=== PATIENT | female | born 1955 | race African-American/Black ===

== ENCOUNTER 2017-06-01 14:45 | Observation (INO) ==
[2017-06-01] MEDS ORDERED: FUROSEMIDE 40 MG/4 ML VIAL IV STA (15:33)
[2017-06-01] MEDS ORDERED: ONDANSETRON 4 MG/2 ML VIAL IV STA (15:33)
[2017-06-01] MEDS ORDERED: ONDANSETRON 4 MG/2 ML VIAL ONE (16:08)
[2017-06-01] MEDS ORDERED: FUROSEMIDE 40 MG/4 ML VIAL ONE (16:08)
[2017-06-01 16:43] LABS: Basophils % 0.7 % (0.0-0.8); Eosinophils # 0.4 10*3/uL (0.0-0.87); Hematocrit 30.3 VOL% (35.7-47.0); Hemoglobin 10.5 GM/DL (12.0-16.0); Lymphocytes # 1.7 10*3/uL (1.4-4.0); Lymphocytes % 37.8 % (21.3-54.2); Mean Corpuscular HGB Conc 34.7 GM/DL (32-36); Mean Corpuscular Hemoglobin 32 PG (27-34); Mean Platelet Volume 11.1 FL (9.6-12.0); Monocytes # 0.6 10*3/uL (0.11-0.8); Monocytes % 13.1 % (1.7-12.7); Neutrophils # 1.7 10*3/uL (1.4-7.4); Neutrophils % 39.4 % (38.7-73.9); Red Blood Count 3.33 MC/CUMM (3.8-5.5); White Blood Count 4.4 T/CUMM (4-12)
[2017-06-01 16:46] LABS: Platelet Count 60 T/CUMM (130-400)
[2017-06-01 16:55] LABS: INR 1.1; PT Patient Result 11.3 SECS; Partial Thromboplastin Time 22.7 SECS (0-40)
[2017-06-01 17:03] LABS: Platelet Estimate Decreased
[2017-06-01 17:22] LABS: Albumin 2.4 G/DL (3.4-5.0); Bilirubin,Total 0.9 MG/DL (0.2-1.0); Calcium 8.2 MG/DL (8.5-10.1); Osmolality,Calculated 286.8 MOS/KG (273-304); Potassium 3.6 MMOL/L (3.5-5.1); Total Protein 5.4 G/DL (6.4-8.3)
[2017-06-01 17:34] LABS: Apearance,Urine CLEAR (Clear); Bacteria,Urine Occasional /HPF (Few); Bilirubin,Urine Negative (Negative); Blood, Urine Moderate mg/dL (Negative); Glucose,Urine (UA) Negative (Negative); Ketones,Urine Negative (Negative); Mucus,Urine Moderate /LPF (Occasional); Nitrite,Urine Negative (Negative); Protein,Urine 100 MG/DL; RBC,Urine 11 /HPF (0-4); Squamous Epithelial Cell,Urine Occasional /HPF (0-10); Urine Color Yellow (Yellow); Urine Specific Gravity 1.008 (1.001-1.035); Urine Urobilinogen < 2.0 EU/DL (0.2-1.0); WBC,Urine 3 /HPF (0-6)
[2017-06-01 17:40] LABS: Barbiturates Screen,Urine Negative (Negative); Benzodiazepines Screen,Urine Negative (Negative); Cannabinoid Screen,Urine Positive (Negative); Opiate Screen,Urine Negative (Negative); Phencyclidine Screen,Urine Negative (Negative)
[2017-06-01] MEDS ORDERED: MORPHINE 2 MG/1 ML SYRINGE IV PRN (18:43)
[2017-06-01] MEDS ORDERED: DEXTROSE 50% 25 GM/50 ML VIAL IV PRN (19:00)
[2017-06-01] MEDS ORDERED: GLUCAGON 1 MG VIAL IM PRN (19:00)
[2017-06-02] MEDS: ONDANSETRON 4 MG/2 ML VIAL IV PRN ×3 (00:01→16:08)
[2017-06-02] MEDS: HYDROmorphone 2 MG/1 ML VIAL IV PRN ×3 (00:02→16:01)
[2017-06-02 04:01] LABS: Basophils % 0.7 % (0.0-0.8); Eosinophils # 0.5 10*3/uL (0.0-0.87); Eosinophils % 12.2 % (0.00-10.9); Hemoglobin 9.6 GM/DL (12.0-16.0); Immature Granulocytes % 0.2 %; Immature Granulocytes Absolute 0.01 #; Lymphocytes # 1.5 10*3/uL (1.4-4.0); Lymphocytes % 35.3 % (21.3-54.2); Mean Corpuscular HGB Conc 34.3 GM/DL (32-36); Mean Corpuscular Hemoglobin 31 PG (27-34); Mean Corpuscular Volume 91.2 FL (87-102); Mean Platelet Volume 11.3 FL (9.6-12.0); Monocytes # 0.5 10*3/uL (0.11-0.8); Monocytes % 11.7 % (1.7-12.7); Neutrophils # 1.6 10*3/uL (1.4-7.4); Neutrophils % 39.9 % (38.7-73.9); Red Blood Count 3.07 MC/CUMM (3.8-5.5); White Blood Count 4.1 T/CUMM (4-12)
[2017-06-02 04:05] LABS: Platelet Count 62 T/CUMM (130-400)
[2017-06-02 04:35] LABS: Albumin 2.1 G/DL (3.4-5.0); Bilirubin,Total 1.1 MG/DL (0.2-1.0); Calcium 8.2 MG/DL (8.5-10.1); Osmolality,Calculated 281.3 MOS/KG (273-304); Potassium 3.4 MMOL/L (3.5-5.1)
[2017-06-02 05:34] LABS: Band Neutrophils 1 % (0-10); Eosinophils 16 % (0-10); Lymphocytes 33 % (20-55); Platelet Estimate Decreased; Segmented Neutrophils 46 % (50-85); Spherocytes Few; Total Cells Counted 100
[2017-06-02] MEDS: FUROSEMIDE 40 MG/4 ML VIAL IV SCH ×2 (08:23→16:00)
[2017-06-02] MEDS: amLODIPine 10 MG TABLET PO SCH (08:24)
[2017-06-02] MEDS: INSULIN LISPRO 100 UNIT/ML SUBCUT SCH ×5 (08:36→20:34)
[2017-06-02] MEDS ORDERED: SPIRONOLACTONE 50 MG TABLET PO SCH ×2 (09:00→16:22)
[2017-06-02] MEDS: BENAZEPRIL 40 MG TABLET PO SCH (16:00)
[2017-06-02] MEDS ORDERED: POTASSIUM CHLORIDE 20 MEQ TABLET PO ONE (16:23)
[2017-06-02] MEDS ORDERED: POTASSIUM CHLORIDE 20 MEQ TABLET PO PRN (16:23)
[2017-06-03] MEDS: ONDANSETRON 4 MG/2 ML VIAL IV PRN ×2 (06:31→10:43)
[2017-06-03] MEDS: HYDROmorphone 2 MG/1 ML VIAL IV PRN ×2 (06:31→10:43)
[2017-06-03] MEDS: INSULIN LISPRO 100 UNIT/ML SUBCUT SCH ×2 (08:24→12:30)
[2017-06-03] MEDS: BENAZEPRIL 40 MG TABLET PO SCH (08:33)
[2017-06-03] MEDS: FUROSEMIDE 40 MG/4 ML VIAL IV SCH (08:34)
[2017-06-03] MEDS: amLODIPine 10 MG TABLET PO SCH (08:34)
[2017-06-03] MEDS ORDERED: SODIUM PHOSPHATE ENEMA 133 ML BOTTLE RECTAL ONE (10:42)
[2017-06-03 12:39] VITALS: BP 112/64
== END 2017-06-03 13:33 | disposition home or self-care (01) ==
LOC: N.ED 14:45 → N.EDINP 14:45 → SUATTDRO 18:22 → N.2E 20:42
PROVIDERS: ADMIT Hospitalist; ATTEND Internal Medicine